=== PATIENT | female | born 1945 | race Caucasian/White ===

== ENCOUNTER 2024-02-19 16:15 | Emergency (ER) | payer MEDICARE, SELFPAY ==
--- NOTE | ~2024-02-19 | XR_ITS ---
EXAMINATION: XR HAND, LEFT CLINICAL INFORMATION: Fourth digit pain and swelling COMPARISON: None available. TECHNIQUE: PA, lateral, and oblique views of the left hand. FINDINGS: There is mild generalized soft tissue swelling of the fourth digit. No fracture or osseous destructive changes. Alignment is anatomic. 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 No erosions or soft tissue calcifications. XR/XR hand LT 2V IMPRESSION: Soft tissue swelling of the fourth digit. No acute osseous process. Degenerative osteoarthritis as described above.
[2024-02-19 16:42] VITALS: BP 165/82; PULSE 76; RESP 16; TEMP 36.5; O2SAT 96; BMI 33.6
--- NOTE | 2024-02-19 16:42 | ED_ITS ---
HPI - General Adult General Chief complaint: Extremity Injury, Upper Stated complaint: l swollen painful finger Time Seen by Provider: 02/19/24 17:40 Source: patient Mode of arrival: ambulatory Limitations: no limitations History of Present Illness ED Provider: Val Velazquez PA-C HPI narrative: 79 year old assigned at female with a PMHx of HLD and heart failure presents to the ER with left 4th finger pain. The patient states that she was typing this morning and realized that her left ring finger is throbbing and tender to palpation. She states that it is constant and now has aching pain radiating to her left arm. Denies injuries or insect bite. Denies fever, chills, body aches, headache, vision changes, chest pain, palpitations, N/V, abdominal pain, urinary symptoms. Onset (ago): hour(s) Location: left (4th finger) Severity: mild Severity scale (1-10): 3 Quality: aching Pain Consistency: constant Relieving factors: none Exacerbating factors: none Associated symptoms: denies other symptoms Treatments prior to arrival: none Related Data Previous Rx's ?Medication ?Instructions ?Recorded cephalexin 500 mg capsule 500 mg PO Q6H 7 days #28 caps 02/19/24 Allergies Allergy/AdvReac Type Severity Reaction Status Date / Time bee pollen [bee stings] Allergy Unknown Unknown Verified 02/19/24 16:44 Review of Systems Constitutional: Constitutional: Reports no additional constitutional complaints, Denies chills, Denies fever(s) and Denies night sweats Eyes: Eyes: Reports no additional eye complaints, Denies blurry vision, Denies change in vision, Denies diplopia, Denies eye discharge, Denies loss of vision and Denies eye pain ENT: Denies dizziness Cardiovascular: Cardiovascular: Reports no additional cardiovascular complaints, Denies chest pain, Denies lightheadedness, Denies Loss of Conscio usness and Denies dyspnea Respiratory: Respiratory: Reports no additional respiratory complaints and Denies dyspnea Gastrointestinal: Gastrointestinal: Reports no additional gastrointestinal complaints, Denies abdominal pain, Denies melena, Denies hematochezia, Denies change in bowel habits and Denies change in stool character Genitourinary: Genitourinary: Denies hematuria, Denies urinary frequency, Denies dysuria, Denies urinary incontinence, Denies urinary hesitancy and Denies urinary urgency Musculoskeletal: Musculoskeletal: Reports no additional musculoskeletal complaints, Denies numbness and Denies tingling Comments: left 4th finger pain / swelling Neurologic: Denies dizziness, Denies loss of vision, Denies numbness and Denies tingling Psychiatric: Psychiatric: Reports no additional psychiatric complaints Endocrine: Endocrine: Reports no additional endocrine complaints Hematologic/Lymphatic: Hematologic/Lymphatic: Reports no additional hematologic/lymphatic complaints Allergic/Immunologic: Allergic/Immunologic: Reports no additional allergic/immunologic complaints [facility] Past Medical History Attestation statement: The following information was validated with the patient. Source: old records reviewed and nursing notes reviewed Social History Social History Advance Directives: No Advance Directives Information Provided: Yes Physical Exam ED Vital Signs: Vital Signs - 24 hr 02/19/24 16:42 Temperature 97.7 F Pulse Rate 76 Respiratory Rate 16 Blood Pressure 165/82 H Pulse Oximetry 96 Oxygen Delivery Method Room Air BMI result Body Mass Index 33.6 Const General: cooperative, no acute distress, alert and awake Nutritional Appearance: well nourished Orientation/consciousness: patient oriented x3 Limitations: no limitations HENMT Head: Yes normal to inspection and Yes atraumatic Ears: hearing grossly normal bilaterally and external ears normal General nose exam: Normal external nose present, no nasal discharge noted and no epistaxis Face and sinus: Yes normal facial exam, No abrasion and No laceration Mouth: Normal oral and palatal mucosa present, no drooling and no muffled voice Eyes General: appearance normal, both eyes and all related structures Periorbital: periorbital findings normal Eyelids: Yes eyelids normal Conjunctivae: conjunctivae normal Pupils: Equal, round and reactive pupils present EOM: EOMs intact bilaterally Neck Neck: Yes normal visual inspection, Yes full ROM and Yes no lymphadenopathy Chest Chest palpation & inspection: normal inspection of the chest Resp Effort & Inspection: normal respiratory effort and able to speak in complete sentences GI Inspection: Yes normal to inspection Neuro General: patient oriented x3 and moves all extremities Cranial nerves: Yes Equal, round and reactive pupils present Cognition (Neuro): normal cognition Extrem Other: skin around the left 4th digit nail is erythematous with edema and tenderness to palpation. Warm to touch. No fluctunace appreciated. General: Yes full ROM and Yes capillary refill normal Right upper extremity: normal to inspection Right lower extremity: normal to inspection Left lower extremity: normal to inspection Psych Appearance: grossly normal Mental Status: mental status grossly normal Affect: normal affect Attitude: cooperative Thought process: Normal thought process present Thought content: Normal thought content present Insight: Good insight present (Psych) Course Course Course Narrative: This is an RME performed by Rissa Self CNP: Additional HPI, ROS, PE not included below will be deferred to primary provider. Patient is a 79-year-old female presents to the emergency department for evaluation for evaluation of redness pain and swelling to the distal tip of the left 4th digit. Patient traumatic in nature. Reports onset yesterday with progressive worsening throughout today. She does admit that she works in her garden, but wears gloves, does not believe that she would have any foreign body or known injury to the finger. Medical Decision Making Medical Decision Making MDM Narrative: 79-year-old assigned female at with a PMHx of HLD and heart failure presented to the emergency room complaining of pain in her left fourth digit. Upon arrival, the patient was stable and not in acute distress. Examination reveals erythema, swelling, and tenderness around the nail of the fourth digit, which was warm to the touch with no appreciated fluctuance. X-ray results show mild generalized soft tissue swelling of the fourth digit. No fracture or osseous destructive changes. Alignment is anatomic. 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 No erosions or soft tissue calcifications. Given these findings, history and physical examination are consistent with paronychia. The plan is to discharge the patient, and advised to apply warm compress to the area. Oral cephalexin was prescribed, and a referral to general surgery for follow-up. Return precautions were discussed, and the patient demonstrated clear understanding of the instructions. Differential Diagnosis Differential Diagnoses: The differential diagnosis associated with the presentation includes paronychia, ingrown nail, cellulitis, insect bite Admission/Observation Consideration of admission/observation: Escalation of care including admission/observation considered Patient would have been admitted to the hospital had her work up had any findings where hospital admission was appropriate and her clinical presentation warranted hospital admission. Independent Interpretation I performed an independent interpretation of an: Plain X-Ray Interpretation: My interpretation is in agreement with the radiologist's impression of this imaging study. EXAMINATION: XR HAND, LEFT CLINICAL INFORMATION: Fourth digit pain and swelling COMPARISON: None available. TECHNIQUE: PA, lateral, and oblique views of the left hand. FINDINGS: There is mild generalized soft tissue swelling of the fourth digit. No fracture or osseous destructive changes. Alignment is anatomic. 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 No erosions or soft tissue calcifications. XR/XR hand LT 2V IMPRESSION: Soft tissue swelling of the fourth digit. No acute osseous process. Degenerative osteoarthritis as described above. Dictated By: Franky Buck MD Signed By: Electronically signed by Franky Buck MD 02/19/24 9305 Radiology Impression Discussion of test interpretation with radiology: I have reviewed the radiologist's reading. Prescription Management I considered prescription management with: Antibiotic (patient prescribed keflex) Discharge Plan Discharge Clinical Impression: Paronychia of finger Patient Disposition: Home, Self-Care Instructions: Paronychia (ED) Additional Instructions: Your finger does not have any area of fluctuance that would be appropriate for us to attempt an incision and drainage procedure. Continue applying warm compresses to the area. Take your antibiotic as prescribed. Follow up with your primary care provider and a general surgeons office. Return to the emergency department immediately if your symptoms worsen or if you develop any dizziness, shortness of breath, difficulty breathing, chest pain, blurry vision, loss of vi markie, nausea, vomiting, abdominal pain, fever, chills, back pain, or any other complaints. Prescriptions: New cephalexin 500 mg capsule 500 mg PO Q6H 7 Days Qty: 28 0RF Referrals: [facility] [place] General Surgeons [Provider Group] (Call to establish and follow up with a general surgeon for possible incision and drainage of your finger. ) Nicolás Smith MD [Primary Care Provider] - Interventions: ED Discharge Assessment Last Done: 02/19/24 18:39 Print Language: Ecuadorean
--- OUTSIDE RECORDS SUMMARY | 2024-02-19 17:54 | XMS_ITS | Continuity of Care Document ---
Author Organization [facility] [place] [address] [address]- Care Team Providers Care Layer Off Name Role Phone Nicolás Smith MD Primary Care Physician En[place] [facility] [place] Date(s): 04/23/20 - 04/30/20 [facility] [address] [address]- [place] Attending Physician: Perfecto Orozco MD Admitting Physician: Perfecto Orozco MD Referring Physician: Perfecto Orozco MD Allergies, Adverse Reactions, Alerts Substance Reaction Severity Status Keflex yeast infections Active Bee Stings swelling Active Jardiance Active Medications Aspir 81 Oral Enteric Coated Tablet 1 tablet = 81 mg, By Mouth, Daily, 0 Refills, Maintenance Start Date: 08/16/12 Status: Ordered Lipitor 10 mg oral tablet 2 tablet = 20 mg, By Mouth, 2 times a day, 0 Refills, Maintenance, 08/16/12 10:22:38 EST Start Date: 08/16/12 Status: Ordered Losartan = 50 mg, By Mouth, 2 times a day, 0 Refills, Maintenance, 04/06/13 9:15:20 EDT Start Date: 04/06/13 Status: Ordered Multivitamin By Mouth, Daily, 0 Refills, Maintenance Start Date: 08/16/12 Status: Ordered Paxil 10 mg oral tablet 1 tablet = 10 mg, By Mouth, Daily, # 30 tablet, 0 Refills, Maintenance, 04/12/13 9:44:01 EDT, Tablet Start Date: 04/12/13 Status: Ordered Problem List Condition Effective Dates Status Health Status Inform ant Breast cancer(Confirmed) 1 03/25/13 Active Malignant Neoplasm of Lower- Outer Quadrant of Female Breast(Confirmed) 03/13/11 Active Other Specified Benign Mamma ry Dysplasias(Confirmed) 03/13/11 Active 1Left Social History Social History Type Response Smoking Status Never (less than 100 in lifetime) entered on: 09/13/18 Sex
--- OUTSIDE RECORDS SUMMARY | 2024-02-19 17:54 | XMS_ITS | Continuity of Care Document ---
Author Organization [facility] Address [address] [address]- Care Team Providers Care Disability Specialist Name Role Phone Sarah BURROUGHS, Nicolás Primary Care Physician [place] [facility] [place](s): 04/10/21 - 05/10/21 [facility] [address] [address]- [place] Allergies, Adverse Reactions, Alerts Substance Reaction Severity [...]
--- OUTSIDE RECORDS SUMMARY | 2024-02-19 17:54 | XMS_ITS | Continuity of Care Document ---
Author Organization [facility] Address [address] [address]- Care Team Providers Care Commercial Hvac Service Technician Name Role Phone Nicolás Smith MD Primary Care Physician Encounter [facility] [place] Date(s): 07/08/21 - 08/07/21 [id number] [address]- Attending Physician: Cal Byers Admitting Physician: AdmCal ibarra Referring Physician: Admtr ArHanny Allergies, Adverse Reactions, Alerts Substance Reaction Severity [...]
--- OUTSIDE RECORDS SUMMARY | 2024-02-19 17:54 | XMS_ITS | Continuity of Care Document ---
Author Organization [facility] Address [address] [address]- Care Team Providers Care Brand Coordinator Name Role Phone Sarah BURROUGHS, Nicolás Primary Care Physician [place] [facility] [place]09[place]21 - 05/09/21 [facility] [address] [address]- [place] Allergies, Adverse Reactions, Alerts Substance Reaction [...]
--- OUTSIDE RECORDS SUMMARY | 2024-02-19 17:54 | XMS_ITS | Referral Summary ---
Author Organization [facility] Address [address] [place], [place] - Care Team Providers Care Transmission Superintendent Name Role Phone Pcp, Unknown Primary Care Physician Unavailab le Encounter Date(s): 02/13/22 - 02/16/22 [facility] [address] [place], [place] - Attending Physician: Non Staff Provider Admitting Physician: Non Staff Provider Results Most recent to oldest [Reference Range]: 1 BUN [6-21 mg/dL] 25 mg/dL *HI* (02/14/22 9:13 AM) AGAP [7-16 mmol/L] 9 mmol/L (02/14/22 9:13 AM) Calcium Lvl [8.3-10.5 mg/dL] 9.5 mg/dL (02/14/22 9:13 AM) Chloride [96-108 mmol/L] 111 mmol/L *HI* (02/14/22 9:13 AM) CO2 [23-30 mmol/L] 21 mmol/L *LOW* (02/14/22 9:13 AM) Creatinine [0.50-0.90 mg/dL] 0.78 mg/dL (02/14/22 9:13 AM) Glucose Lvl [70-99 mg/dL] 129 mg/dL *HI* (02/14/22 9:13 AM) Potassium Lvl [3.3-5.1 mmol/L] 4.9 mmol/ L 1 (02/14/22 9:13 AM) Sodium Lvl [133-145 mmol/L] 141 mmol/L (02/14/22 9:13 AM) eGFR2 [>=60 mL/min/SA] >60 mL/min/SA 2 (02/14/22 9:13 AM) 1Result Comment: Specimen slightly hemolyzed, may interfere with test result 2Result Comment: Note: eGFR updated to the Chronic Kidney Disease Epidemiology Collaboration (CDK_EPI 2020) equation 10/22/21. The Chronic Kidney Disease Epidemiology Collaboration (CDK_EPI) equation for estimated GFR has not been validated in persons under 18 or over 85 years of age, women, patients with serious comorbid conditions or persons with extremes of body size, muscle mass or nutritional status. Per the Kidney Disease: Improving Global Outcomes Quality Initiative (KDIGO), Chronic Kidney Disease is defined as either kidney damage and/or a Glomerular Filtration Rate <60 ml/min/1.73 square meters for3 months or more. Reference: Kidney Disease: Improving Global Outcomes (KDIGO) CKD Work Group. KDIGO 2012 Clinical Practice Guideline for the Evaluation and Management of Chronic Kidney Disease. Kidney inter., Suppl. 2013; 3: 1???150. Procedures Procedure Date Related Diagnosis Body Site Status ROUTINE VENIPUNCTURE 02/14/22 Comp leted Social History Social History Type Response
--- OUTSIDE RECORDS SUMMARY | 2024-02-19 17:54 | XMS_ITS | Continuity of Care Document ---
Author Organization [facility] Address [address] [address]- Care Team Providers Care Linux Devops Engineer Name Role Phone Nicolás Smith MD Primary Care Physician Encounter [facility] [place] Date(s): 01/30/21 - 03/01/21 [facility] [address] [address]- [place] Allergies, Adverse Reactions, Alerts Substance Reaction [...]
--- OUTSIDE RECORDS SUMMARY | 2024-02-19 17:54 | XMS_ITS | Continuity of Care Document ---
Author Organization [facility] Address [address] [address]- Care Team Providers Care General Distillery Worker Name Role Phone Nicolás Smith MD Primary Care Physician En[place] [facility] [place] Date(s): 04/23/20 - 05/23/20 [id number] [address]- [place] Attending Physician: Cal Byers Admitting Physician: AdmCal [...]
--- OUTSIDE RECORDS SUMMARY | 2024-02-19 17:55 | XMS_ITS | Continuity of Care Document ---
Author Organization [facility] Address [address] [address]- Care Team Providers Care Restaurant And Bar Manager Name Role Phone Nicolás Smith MD Primary Care Physician Encounter [facility] [place] Date(s): 05/21/21 - 06/20/21 [facility] [address] [address]- [place] Allergies, Adverse Reactions, Alerts Substance Reaction [...] (less than 100 in lifetime) entered on: 2/11/19 Sex
--- OUTSIDE RECORDS SUMMARY | 2024-02-19 17:55 | XMS_ITS | Continuity of Care Document ---
Author Organization [facility] Address [address] [address]- Care Team Providers Care Database Administration Project Manager Name Role Phone Nicolás Smith MD Primary Care Physician En[place] [facility] [place] Date(s): 01/28/21 - 02/04/21 [facility] [address] [address]- Attending Physician: Perfecto Orozco MD Admitting Physician: Perfecto Orozco MD Referring Physician: Nicolás Smith MD Allergies, Adverse Reactions, Alerts Substance Reaction [...] Benign Mamma ry Dysplasias(Confirmed) 03/13/11 Active 1Left Vital Signs Most recent to oldest [Reference Range]: 1 Height 168 cm (01/28/21 2:29 PM) Weight 92.9 kg (01/28/21 2:29 PM) Oxygen Saturation [94-100 %] 98 % (01/28/21 2:29 PM) Pulse Rate [55-90 bpm] 92 bpm *H* (01/28/21 2:29 PM) Body Mass Index [18.5-24.99] 32.92 *>HHI* (01/28/21 2:29 PM) Blood Pressure [90-138/55-84 mm Hg] 136/ 74mm Hg (01/28/21 2:29 PM) Blood pressure sites Arm, left (01/28/21 2:29 PM) Weight Obtained Via Standing scale (01/28/21 2:29 PM) Social History Social History Type Response Smoking Status Never (less than 100 in lifetime) entered on: 09/13/18 Sex
--- OUTSIDE RECORDS SUMMARY | 2024-02-19 17:55 | XMS_ITS | Continuity of Care Document ---
Author Organization [facility] Address [address] [address]- Care Team Providers Care Assistant Offset Press Operator Name Role Phone Nicolás Smith MD Primary Care Physician Encounter [facility] [place] Date(s): 01/28/21 - 02/27/21 [facility] [address] [address]- Attending Physician: Cal Byers Admitting Physician: AdmtrCal Referring Physician: Admtr, Ar8 Allergies, Adverse Reactions, Alerts Substance Reaction Severity [...]
--- OUTSIDE RECORDS SUMMARY | 2024-02-19 17:55 | XMS_ITS | Continuity of Care Document ---
Author Organization [facility] Address [address] [address]- Care Team Providers Care Hardboard Press Operator Name Role Phone Nicolás Smith MD Primary Care Physician [place] [facility] [place] Date(s): 04/03/21 - 04/10/21 [facility] [address] [address]- Attending Physician: Perfecto Orozco MD Admitting Physician: [...]
--- OUTSIDE RECORDS SUMMARY | 2024-02-19 17:55 | XMS_ITS | Continuity of Care Document ---
Author Organization [facility] Address [address] [address]- Care Team Providers Care Shipping Support Clerk Name Role Phone Nicolás Smith MD Primary Care Physician Encounter [facility] [place] Date(s): 04/03/21 - 05/03/21 [id number] [address]- Attending Physician: Cal Byers Admitting Physician: AdmCal [...]
--- OUTSIDE RECORDS SUMMARY | 2024-02-19 17:55 | XMS_ITS | Continuity of Care Document ---
Author Organization [facility] [place] Address [address] [place] [address]- Care Team Providers Care Hot Head Machine Operator Name Role Phone Nicolás Smith MD Primary Care Physician Encounter 06/18/21 - 06/25/21 [facility] [address], [address] [place] [address]- Attending Physician: Nicolás Smith MD Admitting Physician: Nicolás Smith MD Referring Physician: Nicolás Smith MD Allergies, [...]
--- OUTSIDE RECORDS SUMMARY | 2024-02-19 17:55 | XMS_ITS | Continuity of Care Document ---
Author Organization [facility] Address [address] [address]- Care Team Providers Care Financial Reporting Specialist Name Role Phone Nicolás Smith MD Primary Care Physician [place] [facility] [place]s): 02/05/21 - 03/07/21 [facility] [address] [address]- [place] Allergies, Adverse Reactions, Alerts Substance Reaction [...]
--- OUTSIDE RECORDS SUMMARY | 2024-02-19 17:55 | XMS_ITS | Continuity of Care Document ---
Author Organization [facility] Address [address] [address]- Care Team Providers Care Hydroelectric Station Operator Name Role Phone Nicolás Smith MD Primary Care Physician En[place] [facility] [place] Date(s): 04/10/20 - 05/10/20 [id number] [address]- [place] Attending Physician: Cal Byers Admitting Physician: [...]
--- OUTSIDE RECORDS SUMMARY | 2024-02-19 17:55 | XMS_ITS | Continuity of Care Document ---
Author Organization [facility] Address [address] [address]- Care Team Providers Care Corporate Sales Representative Name Role Phone Nicolás Smith MD Primary Care Phys[id number] Date[facility] 05/02/21 - 05/09/21 [facility] [address] [address]- Attending Physician: Kamaljit Vergara MD Admitting Physician: Kamaljit Vergara MD Referring Physician: Nicolás Smith MD Allergies, [...] oldest [Reference Range]: 1 Height 168 cm (05/02/21 11:57 AM) Weight 90.4 kg (05/02/21 11:57 AM) Oxygen Saturation [94-100 %] 97 % (05/02/21 11:57 AM) Pulse Rate [55-90 bpm] 72 bpm (05/02/21 11:57 AM) Body Mass Index [18.5-24.99] 32.03 *>HHI* (05/02/21 11:57 AM) Blood Pressure [90-138/55-84 mm Hg] 157/ 80mm Hg *H* (05/02/21 11:57 AM) Mode of Delivery (Oxygen) Room air (05/02/21 11:57 AM) Weight Obtained Via Standing scale (05/02/21 11:57 AM) Social History Social History Type Response Smoking Status Never (less than 100 in lifetime) entered on: 09/13/18 Sex
--- OUTSIDE RECORDS SUMMARY | 2024-02-19 17:55 | XMS_ITS | Continuity of Care Document ---
Author Organization [facility] Address [address] [address]- Care Team Providers Care President Practicing Urologist Name Role Phone Nicolás Smith MD Primary Care Physician [id number] Date[facility] 05/03/21 - 08/07/21 [place] [id number] [address]- Attending Physician: Perfecto Orozco MD Admitting Physician: [...]
--- OUTSIDE RECORDS SUMMARY | 2024-02-19 17:55 | XMS_ITS | Continuity of Care Document ---
Author Organization [facility] Address [address] [address]- Care Team Providers Care Field Instructor Name Role Phone Nicolás Smith MD Primary Care Physician [place] [facility] [place] Date(s): 04/10/20 - 04/17/20 [facility] [address] [address]- [place] Attending Physician: Perfecto Orozco MD Admitting Physician: Perfecto Orozco MD Referring Physician: Srini Arauz Allergies, Adverse Reactions, Alerts Substance Reaction Severity [...] oldest [Reference Range]: 1 Height 168 cm (04/10/20 2:16 PM) Weight 100.9 kg (04/10/20 2:16 PM) Oxygen Saturation [94-100 %] 96 % (04/10/20 2:16 PM) Pulse Rate [55-90 bpm] 98 bpm *H* (04/10/20 2:16 PM) Body Mass Index [18.5-24.99] 35.75 *>HHI* (04/10/20 2:16 PM) Blood Pressure [90-138/55-84 mm Hg] 140/ 82mm Hg *H* (04/10/20 2:16 PM) Mode of Delivery (Oxygen) Room air (04/10/20 2:16 PM) Weight Obtained Via Standing scale (04/10/20 2:16 PM) Social History Social History Type Response Smoking Status Never (less than 100 in lifetime) entered on: 09/13/18 Sex
--- OUTSIDE RECORDS SUMMARY | 2024-02-19 17:55 | XMS_ITS | Continuity of Care Document ---
Author Organization [facility] Address [address] [address]- Care Team Providers Care Appeals Coordinator Name Role Phone Nicolás Smith MD Primary Care Physician Encounter [facility] [place] Date(s): 07/18/19 - 07/25/19 [facility] [address] [address]- [place] Attending Physician: Perfecto Orozco MD Admitting Physician: Perfecto Orozco MD Referring Physician: Nicolás Smith MD Allergies, Adverse Reactions, Alerts Substance Reaction Severity Status Keflex yeast infections Active Bee Stings swelling Active Jardiance Active Medications Aspir 81 Oral Enteric Coated Tablet 1 tablet = 81 mg, By Mouth, Daily, 0 Refills, Maintenance Start Date: 08/16/12 Status: Ordered Lipitor 10 mg oral tablet 4 tablet = 40 mg, By Mouth, Daily at bedtime, 0 Refills, Maintenance, 08/16/12 10:22:38 EST Start Date: 08/16/12 Status: Ordered Losartan = 50 mg, By Mouth, 2 times a day, 0 Refills, Maintenance, 04/06/13 9:15:20 EDT Start Date: 04/06/13 Status: Ordered Multivitamin By Mouth, Daily, 0 Refills, Maintenance Start Date: 08/16/12 Status: Ordered Paxil 10 mg oral tablet 2 tablet = 20 mg, By Mouth, Daily, # 30 tablet, [...] oldest [Reference Range]: 1 Height 168 cm (07/18/19 1:20 PM) Weight 95.9 kg (07/18/19 1:20 PM) Oxygen Saturation [94-100 %] 98 % (07/18/19 1:20 PM) Pulse Rate [55-90 bpm] 95 bpm *H* (07/18/19 1:20 PM) Body Mass Index [18.5-24.99] 33.98 *>HHI* (07/18/19 1:20 PM) Blood Pressure [90-138/55-84 mm Hg] 154/ 100mm Hg *H* (07/18/19 1:20 PM) Blood pressure sites Arm, left (07/18/19 1:20 PM) Weight Obtained Via Standing scale (07/18/19 1:20 PM) Social History Social History Type Response Smoking Status Never (less than 100 in lifetime) entered on: 09/13/18 Sex
--- OUTSIDE RECORDS SUMMARY | 2024-02-19 17:55 | XMS_ITS | Continuity of Care Document ---
Author Organization [facility] Address [address] [address]- Care Team Providers Care Supervisor Records Change Name Role Phone Nicolás Smith MD Primary Care Physician Encounter [facility] [place] Date(s): 02/11/21 - 03/13/21 [facility] [address] [address]- [place] Allergies, Adverse Reactions, Alerts Substance Reaction [...]
--- OUTSIDE RECORDS SUMMARY | 2024-02-19 17:55 | XMS_ITS | Continuity of Care Document ---
Author Organization [facility] Address [address] [address]- Care Team Providers Care Health And Physical Education Professor Name Role Phone Nicolás Smith MD Primary Care Physician Encounter [facility] [place](s): 07/18/19 - 07/28/19 [place] [address] [address]- [place] Attending Physician: Cal Byers Admitting Physician: [...]
--- OUTSIDE RECORDS SUMMARY | 2024-02-19 17:55 | XMS_ITS | Continuity of Care Document ---
Author Organization [facility] Address [address] [address]- Care Team Providers Care Dermatology Physician Assistant Name Role Phone Sarah BURROUGHS, Nicolás Primary Care Physician Encounter [facility] [place] Date(s): 03/14/21 - 04/13/21 [facility] [address] [address]- [place] Allergies, Adverse Reactions, Alerts Substance Reaction [...]
--- OUTSIDE RECORDS SUMMARY | 2024-02-19 17:55 | XMS_ITS | Continuity of Care Document ---
Author Organization [facility] Address [address] [address]- Care Team Providers Care Vice President [employer] Name Role Phone Nicolás Smith MD Primary Care Physician Encounter [facility] [place] Date(s): 03/26/22 - 04/25/22 [facility] [address] [address]- [place] Allergies, Adverse Reactions, Alerts Substance Reaction Severity Status Keflex yeast infections Active Bee Stings swelling Active Jardiance Active Medications Aleve = 220 mg, By Mouth, Every 12 hours, 0 Refills, Maintenance, 09/13/18 15:53:01 EST Start Date: 09/13/18 Status: Ordered Aspir 81 Oral Enteric Coated Tablet 1 tablet = 81 mg, By Mouth, Daily, 0 Refills, Maintenance Start Date: 08/16/12 Status: Ordered furosemide 40 mg oral tablet 40 mg, 1, tablet, By Mouth, Every Thursday, Thursday and Thursday, # 13 tablet, Refills 6, Tot. Refills 6, Maintenance, 05/02/21 13:23:00 EDT, Route to Pharmacy Electronically, [id number], Partial fill upon patient request if the prescription... Start Date: 05/02/21 Stop Date: 11/28/21 Status: Ordered Hair, Skin & Nails = 5 mg, By Mouth, Daily, 0 Refills, Maintenance, 09/13/18 15:55:12 EST Start Date: 09/13/18 Status: Ordered Lipitor 10 mg oral tablet 2 tablet = 20 mg, By Mouth, 2 times a day, 0 Refills, Maintenance, 08/16/12 10:22:38 EST Start Date: 08/16/12 Status: Ordered Losartan = 50 mg, By Mouth, 2 times a day, 0 Refills, Maintenance, 04/06/13 9:15:20 EDT Start Date: 04/06/13 Status: Ordered Multivitamin By Mouth, Daily, 0 Refills, Maintenance Start Date: 08/16/12 Status: Ordered multivitamin Vitamin B Complex oral capsule 1 capsule, By Mouth, Daily, 0 Refills, Maintenance, 09/13/18 15:54:09 EST Start Date: 09/13/18 Status: Ordered Paxil 10 mg oral tablet 1 tablet = 10 mg, By Mouth, Daily, # 30 tablet, 0 Refills, Maintenance, 04/12/13 9:44:01 EDT, Tablet Start Date: 04/12/13 Status: Ordered Toprol XL 50 mg oral tablet, extended release 50 mg, 1, tablet, By Mouth, Daily, # 90 tablet, Refills 3, Tot. Refills 3, Maintenance, 03/26/22 13:12:00 EDT, Route to Pharmacy Electronically, [id number], Partial fill upon patient request if the prescription is for a schedule II opioid d... 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
--- OUTSIDE RECORDS SUMMARY | 2024-02-19 17:55 | XMS_ITS | Continuity of Care Document ---
Author Organization [facility] Address [address] [address]- Care Team Providers Care Truck Driver Rubbish Collector Name Role Phone Nicolás Smith MD Primary Care Physician [id number] Date(s): 02/15/21 - 02/22/21 [facility] [address] [address]- Attending Physician: Perfecto Orozco MD Admitting Physician: [...]
[2024-02-19 18:39] VITALS: BP 165/82; PULSE 76; RESP 16; TEMP 36.5; O2SAT 96
== END 2024-02-19 18:39 | disposition home or self-care (01) ==
PROVIDERS: Emergency Provider Emergency Medicine; PCP Family Medicine
DX: L03.012 Cellulitis of left finger (principal); M79.645 Pain in left finger(s)
CPT/HCPCS: 73120; 99282; 99283